=== PATIENT | female | born 1990 | race Caucasian/White ===

== ENCOUNTER 2016-10-31 20:35 | Emergency (ER) | payer OTHER ==
[2016-10-31 20:42] VITALS: BP 140/72
--- NOTE | 2016-10-31 20:57 | UC ---
HPI Febrile Illness - HPI Summary HPI Summary: 26 YEAR OLD FEMALE PRESENTS WITH COMPLAINS OF FEVER AND CHILLS. SHE ALSO HAS A HISTORY OF SEVERE LEFT INCISOR TOOTH DECAY. - History of Current Complaint Chief Complaint: UCGeneralIllness Time Seen by Provider: 10/31/16 20:51 Hx Obtained From: Patient Hx Last Menstrual Period: MIDDLE SEPTEMBER Onset/Duration: Started Days Ago Initial Severity: Moderate Current Severity: Moderate Pain Scale Used: 0-10 Numeric - 5 Aggravating Factors: Nothing Alleviating Factors: Nothing - Allergy/Home Medications Allergies/Adverse Reactions: Allergies Allergy/AdvReac Type Severity Reaction Status Date / Time No Known Allergies Allergy Verified 10/31/16 20:42 Home Medications: Home Medications Acetaminophen [Tylenol 8 Hour] 650 mg PO PRN 10/31/16 [History] PMH/Surg Hx/FS Hx/Imm Hx Previously Healthy: Yes Infectious Disease History: No Infectious Disease History: Denies: Traveled Outside the [place] in Last 30 Days - Social History Alcohol Use: None Substance Use Type: Reports: None Smoking Status (MU): Never Smoked Tobacco Review of Systems Constitutional: Negative Skin: Negative Eyes: Negative ENT: Dental Pain Respiratory: Negative Cardiovascular: Negative Gastrointestinal: Negative Genitourinary: Negative Motor: Negative Neurovascular: Negative Musculoskeletal: Negative Neurological: Negative Psychological: Negative All Other Systems Reviewed And Are Negative: Yes Physical Exam Triage Information Reviewed: Yes Vital Signs: Initial Vital Signs Temp 37.7 C 10/31/16 20:38 Pulse 100 10/31/16 20:38 Resp 16 10/31/16 20:38 BP 140/72 10/31/16 20:38 Pulse Ox 100 10/31/16 20:38 Eye Exam: Normal ENT Exam: Normal Dental: Positive: Abscess @ - LEFT UPPER INCISOR Neck exam: Normal Neck: Positive: 1 Respiratory Exam: Normal Cardiovascular Exam: Normal Abdominal Exam: Normal Musculoskeletal Exam: Normal Neurological Exam: Normal Psychological Exam: Normal Skin Exam: Normal Course/Dx - Diagnoses Clinic Provider Diagnoses: TOOTH ABSCESS LEFT UPPER INCISOR Discharge - Discharge Plan Condition: Stable Disposition: HOME Prescriptions: Amoxicillin/Clavulanate TAB* [Augmentin TAB 875*] 875 mg PO BID #20 tab Chlorhexidine MW 0.12% 473ML* [Peridex Mouth Wash 0.12%] 15 ml MT TID PC #1 btl Naproxen [Naprosyn 500 mg] 500 mg PO BID #30 tab Patient Education Materials: Dental Abscess (ED) Referrals: Tawanda Epps MD [Primary Care Provider] -
[2016-10-31] MEDS ORDERED: Amoxicillin/Clavulanate TAB* 875 MG PO ONE (21:20)
[2016-10-31] MEDS ORDERED: Naproxen TAB* 250 MG PO ONE (21:21)
== END 2016-10-31 21:32 | disposition home or self-care (01) ==
LOC: UCEAST 20:35
DX: K04.7 Periapical abscess without sinus (principal); R50.9 Fever, unspecified; Z32.02 Encounter for pregnancy test, result negative
CPT/HCPCS: 81003; 84702; 87502; 87651; 99212; A9270-GY; G0463

== ENCOUNTER 2019-04-14 13:46 | Emergency (ER) | payer SELFPAY ==
[2019-04-14 15:07] VITALS: BP 127/68
--- NOTE | 2019-04-14 15:37 | UC ---
Cardiac HPI - HPI Summary HPI Summary: 28-year-old woman comes in with a chief complaint of chest pain. She woke up this morning without any chest pain. She got to work and was lifting heavy items and started with some lower anterior sternal pain that was worse with lifting twisting turning bending and taking deep breaths. Denies any nausea sweating or shortness of breath. No radiation of the pain. While sitting here in clinic the pain is less when she's not moving but when she moves around it makes it worse. No history of GERD. Patient is not a smoker. She has no history of DVTs. Is no family history of DVTs. She is not on a blood thinner. No calf pain or swelling. No recent travel. Pain is worse is about an 8 out of 10. At rest it went down to about a 1 out of 10 and when she moved around in clinic it went to about a 2 out of 10. Patient has had chest pain on and off in the past and has seen her primary care doctor but has never been evaluated by cardiology. - History of Current Complaint Chief Complaint: UCChestPain Stated Complaint: CHEST PAIN Time Seen by Provider: 04/14/19 15:17 Hx Last Menstrual Period: 04/11/19 Pain Intensity: 2 - Allergy/Home Medications Allergies/Adverse Reactions: Allergies Allergy/AdvReac Type Severity Reaction Status Date / Time No Known Allergies Allergy Verified 04/14/19 14:09 Home Medications: Home Medications NK [No Home Medications Reported] 04/14/19 [History Confirmed 04/14/19] PMH/Surg Hx/FS Hx/Imm Hx Previously Healthy: Yes - Surgical History Surgical History: None - Family History Known Family History: Positive: Non-Contributory - Social History Alcohol Use: None Substance Use Type: None Smoking Status (MU): Never Smoked Tobacco Review of Systems All Other Systems Reviewed And Are Negative: Yes Constitutional: Positive: Negative Skin: Positive: Negative Eyes: Positive: Negative ENT: Positive: Negative Respiratory: Positive: Negative Cardiovascular: Positive: Chest Pain Gastrointestinal: Positive: Negative Motor: Positive: Negative Neurovascular: Positive: Negative Musculoskeletal: Positive: Negative. Negative: Calf Tenderness, Edema Neurological: Positive: Negative Psychological: Positive: Negative Is Patient Immunocompromised?: No Physical Exam Triage Information Reviewed: Yes Appearance: Well-Appearing, No Pain Distress, Well-Nourished Vital Signs: Initial Vital Signs Temp 98.5 F 04/14/19 13:59 Pulse 69 04/14/19 13:59 Resp 16 04/14/19 13:59 BP 130/86 04/14/19 13:59 Pulse Ox 100 04/14/19 13:59 Vital Signs Reviewed: Yes Eye Exam: Normal Eyes: Positive: Conjunctiva Clear Neck: Positive: Supple Respiratory: Positive: Lungs clear, Normal breath sounds, No respiratory distress, Other: - Tender to palpation lower sternum. Patient reports this is the same pain that she came in for. Cardiovascular: Positive: RRR Abdomen Description: Positive: Nontender - No epigastric tenderness to palpation., Soft Bowel Sounds: Positive: Present Musculoskeletal: Positive: Strength Intact, ROM Intact, No Edema - No calf tenderness Neurological: Positive: Alert, Muscle Tone Normal Psychological: Positive: Age Appropriate Behavior Skin Exam: Normal Diagnostics - EKG Cardiac Rate: NL - AT 1347 Cardiac Rhythm: Sinus: Normal - 70BPM Ectopy: None ST Segment: Normal - No prior EKGs for comparison. EKG Comparison: Other - Patient does have ST elevation in the anterior leads. However it is concave up. Patient also has large Q waves in the anterior leads. - Assessment/Plan Course Of Treatment: Discussed the EKG with the patient. There are some large Q waves in the anterior leads and concave up ST elevation. Do not have any old EKGs to compare to. Patient's tender palpation her lower sternum and that pain is worse also with movement. At this time this does not appear to be a cardiac cause of chest pain. Patient is low risk for pulmonary embolus. Plan is to treat with ibuprofen and rest. Follow-up with primary care doctor and/or cardiology. We discussed going to the emergency department right now the patient is not worried about her heart. Did let her know if the pain persisted and she get worse or had any other symptoms she should go directly to the emergency department. - Clinical Impression Provider Diagnosis: Chest pain Discharge ED - Sign-Out/Discharge Documenting (check all that apply): Patient Departure All imaging exams completed and their final reports reviewed: No Studies - Discharge Plan Condition: Stable Disposition: HOME Patient Education Materials: Chest Pain (ED), Chest Wall Pain (ED) Forms: *Work Release Referrals: Suzanne Gill PA [Primary Care Provider] - Osmin Urrutia MD [Medical Doctor] - Additional Instructions: FOLLOW UP WITH YOUR PRIMARY CARE DOCTOR. FOLLOW UP WITH CARDIOLOGY. TAKE IBUPROFEN DIRECTED IF HELPFUL. GO TO THE EMERGENCY DEPARTMENT IF NOT IMPROVED OR WORSE; PAIN, SHORTNESS OF BREATH, NAUSEA, YOU FEEL ILL OR ANY QUESTIONS OR CONCERNS. - Billing Disposition and Condition Condition: STABLE Disposition: Home
== END 2019-04-14 15:49 | disposition home or self-care (01) ==
LOC: UCEAST 13:46
DX: R07.9 Chest pain, unspecified (principal)
CPT/HCPCS: 93005; 99211; G0463